=== PATIENT | female | born 1985 | race American Indian/Alaskan Native ===

== ENCOUNTER 2016-09-27 10:35 | Emergency (ER) | payer OTHER ==
[2016-09-27 12:06] LABS: Basophils % (Auto) 1.1 % (0.0-1.8); Eosinophils % (Auto) 1.8 % (0.0-4.3); Hematocrit 35.2 % (30.3-42.9); Hemoglobin 11.2 gm/dl (10.1-14.3); Mean Corpuscular HGB Conc 32 % (30-34); Mean Corpuscular Volume 74 fl (79-97); Platelet Count 213 K/mm3 (140-440); Red Blood Count 4.73 M/mm3 (3.65-5.03); Red Cell Distribution Width 13.7 % (13.2-15.2); White Blood Count 5.2 K/mm3 (4.5-11.0)
[2016-09-27 12:08] LABS: Mean Corpuscular Hemoglobin 24 pg (28-32)
[2016-09-27 12:34] LABS: Anion Gap 18 mmol/L; BUN/Creatinine Ratio 13.75; Blood Urea Nitrogen 11 mg/dL (7-17); Calcium 8.9 mg/dL (8.4-10.2); Carbon Dioxide 25 mmol/L (22-30); Chloride 105.2 mmol/L (98-107); Glucose 83 mg/dL (65-100); Potassium 4.3 mmol/L (3.6-5.0); Sodium 144 mmol/L (137-145)
[2016-09-27 20:34] VITALS: BP 117/59
--- NOTE | 2016-09-27 21:07 | Emergency Department Report ---
ED Chest Pain HPI - General Chief Complaint: Chest Pain Stated Complaint: CHEST PAIN/LT SIDE PAIN Time Seen by Provider: 09/27/16 19:47 Source: patient Mode of arrival: Ambulatory Limitations: No Limitations - History of Present Illness Initial Comments: 31-year-old female with a past medical history presents to the hospital complaining of left upper chest pain for last few months. Pain has been ongoing greater than 5 months. Pain is intermittent, aching in nature, worsened movement and palpation. No alleviating factors reported. Currently rated 5/10 in intensity. Pain worsened over the last 4 days. Patient c/o swelling to the upper portion of her chest. Denies cough, fever, calf tenderness, control pill use, recent travel, history of PE/DVT, or family history of CAD. Patient complains of dyspnea intermittently and also states that symptoms are worse with exercising cardio. Severity scale (0 -10): 8 - Related Data Previous Rx's Medication Instructions Recorded Last Taken Type Ibuprofen [Motrin] 600 mg PO Q8H PRN #30 tablet 09/27/16 Unknown Rx Allergies Allergy/AdvReac Type Severity Reaction Status Date / Time sulfamethoxazole Allergy Hives Verified 06/14/15 07:57 [From Bactrim] trimethoprim [From Bactrim] Allergy Hives Verified 06/14/15 07:57 SUPA score - Supa Score Age > 65: (0) No Aspirin use within the Past 7 Days: (0) No 3 or more CAD Risk Factors: (0) No 2 or more Angina events in past 24 hrs: (0) No Known CAD with more than 50% Stenosis: (0) No Elevated Cardiac Markers: (0) No ST Deviation Greater than 0.5mm: (0) No SUPA Score: 0 ED Review of Systems ROS: Stated complaint: CHEST PAIN/LT SIDE PAIN Other details as noted in HPI Comment: All other systems reviewed and negative Other: Constitutional: No fevers chills Eyes: No eye pain visual changes ENT: No ear pain or throat pain Neck: Denies pain Respiratory: Denies cough wheezing Cardiovascular: As per HPI GI: Denies abdominal pain, nausea, vomiting, diarrhea : Denies dysuria Musculoskeletal: Denies back pain Skin: Denies rash, lesions, erythema Neurologic: Denies headache, numbness, weakness Psychiatric: Denies suicidal ideation, hallucinations ED Past Medical Hx - Past Medical History Previous Medical History?: No - Surgical History Past Surgical History?: Yes Additional Surgical History: - Social History Smoking Status: Never Smoker Substance Use Type: Alcohol - Medications Home Medications: Home Medications Medication Instructions Recorded Confirmed Last Taken Type Ibuprofen [Motrin] 600 mg PO Q8H PRN #30 tablet 09/27/16 Unknown Rx ED Physical Exam - General Limitations: No Limitations - Other Other exam information: General: No limitations, patient is alert in no acute distress Head exam: Atraumatic, normocephalic Eyes exam: Normal appearance, pupils equal reactive to light, extraocular movements intact ENT: Moist mucous membrane, normal oropharynx Neck exam: Normal inspection, full range of motion, no meningismus nontender Respiratory exam: Clear to auscultation bilateral, no wheezes, rales, crackles, reproducible left upper rib tenderness to the anterior chest wall without any signs of swelling. Cardiovascular: Normal rate and rhythm, normal heart sounds Abdomen: Soft, nondistended, and nontender, with normal bowel sounds, no rebound, or guarding Extremity: Full range of motion normal inspection no deformity, no calf tenderness or edema Back: Normal Inspection, full range of motion, no tenderness Neurologic: Alert, oriented x3, cranial nerves intact, no motor or sensory deficit Psychiatric: normal affect, normal mood Skin: Warm, dry, intactm ED Course Vital Signs 09/27/16 09/27/16 10:58 20:34 Temperature 98.1 F Pulse Rate 51 L 52 L Respiratory 14 16 Rate Blood Pressure 112/67 Blood Pressure 117/59 [Left] O2 Sat by Pulse 100 95 Oximetry - Reevaluation(s) Reevaluation #1: 09/27/16 21:06 Patient declined offer for pain medication ED Medical Decision Making - Lab Data Result diagrams: 09/27/16 11:53 09/27/16 11:53 Lab Results 09/27/16 09/27/16 09/27/16 Range/Units 11:53 11:53 15:16 WBC 5.2 (4.5-11.0) K/mm3 RBC 4.73 (3.65-5.03) M/mm3 Hgb 11.2 (10.1-14.3) gm/dl Hct 35.2 (30.3-42.9) % MCV 74 L (79-97) fl MCH 24 L (28-32) pg MCHC 32 (30-34) % RDW 13.7 (13.2-15.2) % Plt Count 213 (140-440) K/mm3 Lymph % (Auto) 33.3 (13.4-35.0) % Hunt % (Auto) 8.3 H (0.0-7.3) % Eos % (Auto) 1.8 (0.0-4.3) % Baso % (Auto) 1.1 (0.0-1.8) % Lymph # 1.7 (1.2-5.4) K/mm3 Hunt # 0.4 (0.0-0.8) K/mm3 Eos # 0.1 (0.0-0.4) K/mm3 Baso # 0.1 (0.0-0.1) K/mm3 Seg Neutrophils % 55.5 (40.0-70.0) % Seg Neutrophils # 2.9 (1.8-7.7) K/mm3 D-Dimer (0-234) ng/mlDDU Sodium 144 (137-145) mmol/L Potassium 4.3 (3.6-5.0) mmol/L Chloride 105.2 (98-107) mmol/L Carbon Dioxide 25 (22-30) mmol/L Anion Gap 18 mmol/L BUN 11 (7-17) mg/dL Creatinine 0.8 (0.7-1.2) mg/dL Estimated GFR > 60 ml/min BUN/Creatinine Ratio 13.75 % Glucose 83 (65-100) mg/dL Calcium 8.9 (8.4-10.2) mg/dL Troponin T < 0.010 < 0.010 (0.00-0.029) ng/mL 09/27/16 Range/Units 20:16 WBC (4.5-11.0) K/mm3 RBC (3.65-5.03) M/mm3 Hgb (10.1-14.3) gm/dl Hct (30.3-42.9) % MCV (79-97) fl MCH (28-32) pg MCHC (30-34) % RDW (13.2-15.2) % Plt Count (140-440) K/mm3 Lymph % (Auto) (13.4-35.0) % Hunt % (Auto) (0.0-7.3) % Eos % (Auto) (0.0-4.3) % Baso % (Auto) (0.0-1.8) % Lymph # (1.2-5.4) K/mm3 Hunt # (0.0-0.8) K/mm3 Eos # (0.0-0.4) K/mm3 Baso # (0.0-0.1) K/mm3 Seg Neutrophils % (40.0-70.0) % Seg Neutrophils # (1.8-7.7) K/mm3 D-Dimer 235.26 H (0-234) ng/mlDDU Sodium (137-145) mmol/L Potassium (3.6-5.0) mmol/L Chloride (98-107) mmol/L Carbon Dioxide (22-30) mmol/L Anion Gap mmol/L BUN (7-17) mg/dL Creatinine (0.7-1.2) mg/dL Estimated GFR ml/min BUN/Creatinine Ratio % Glucose (65-100) mg/dL Calcium (8.4-10.2) mg/dL Troponin T (0.00-0.029) ng/mL - EKG Data -: EKG Interpreted by Me (sinus chelsy 54,) - EKG Data When compared to previous EKG there are: no significant change (compared to ) - Radiology Data Radiology results: image reviewed (chest x-ray: naf) - Medical Decision Making Patient is low risk for GA given the lack of risk factors, unremarkable EKG and cardiac enzymes. Patient has low risk for PE/DVT with a d-dimer less than 250. For further imaging not obtained. Patient was discharged home with anti- inflammatory for pain and encouraged follow-up with primary care doctor for further management. - Differential Diagnosis costochondritis, chest wall pain, PE, GA Critical Care Time: No Critical care attestation.: If time is entered above; I have spent that time in minutes in the direct care of this critically ill patient, excluding procedure time. ED Disposition Clinical Impression: Costochondritis Disposition: DISCHARGED TO HOME OR SELFCARE Is pt being admited?: No Does the pt Need Aspirin: No Condition: Stable Instructions: Costochondritis (ED) Additional Instructions: Take Motrin as needed for pain and follow-up with your primary care doctor. Return if symptoms worsen. Prescriptions: Ibuprofen [Motrin] 600 mg PO Q8H PRN #30 tablet PRN Reason: Pain Referrals: PRIMARY CARE, [Primary Care Provider] - 3-5 Days Time of Disposition: 21:09
--- NOTE | 2016-09-28 09:17 | XRay Report ---
Chest 2 views: History: Chest pain. Findings: Normal cardiomediastinal silhouette. Trachea is midline. No consolidation, pneumothorax or pleural effusion. Impression: No acute cardiopulmonary findings.
== END 2016-09-27 21:23 | disposition home or self-care (01) ==
LOC: ED 10:35
DX: M94.0 Chondrocostal junction syndrome [Tietze] (principal)
CPT/HCPCS: 36415; 71020; 80048; 84484; 85025; 85379; 93005; 93010

== ENCOUNTER 2017-02-01 15:38 | Emergency (ER) | payer OTHER ==
--- NOTE | 2017-02-01 18:31 | Emergency Department Report ---
<MURPHYMARICARMENALEX CRAVEN M - Last Filed: 02/01/17 19:06> ED General Adult HPI - General Chief complaint: Allergic Reaction Stated complaint: HIVES/BODY SORENESS/FATIGUE Time Seen by Provider: 02/01/17 18:08 Source: patient Mode of arrival: Ambulatory Limitations: No Limitations - History of Present Illness Initial comments: PT c/o fatigue x weeks. PT also c/o body aches, worse in the am. PT also states she has been breaking out in diffuse and random hives since Saturday. PT states she has broken out in hives before and they usually go away when she takes claritin or Benadryl, however these hives keep returning. PT states she is currently on her menstrual cycle and it is normal. MD Complaint: fatigue, rash -: Gradual, week(s) Severity scale (0 -10): 0 (pt denies pain) Consistency: intermittent Improves with: medication Associated Symptoms: malaise, rash. denies: chest pain, fever/chills, headaches , loss of appetite, nausea/vomiting - Related Data Previous Rx's Medication Instructions Recorded Last Taken Type Ibuprofen [Motrin] 600 mg PO Q8H PRN #30 tablet 09/27/16 Unknown Rx Metoclopramide [Reglan] 10 mg PO TID PRN #28 tab 02/01/17 Unknown Rx Prednisone [predniSONE 10 mg 10 mg PO .TAPER #1 tab.ds.pk 02/01/17 Unknown Rx (6-Day Pack, 21 Tabs)] diphenhydrAMINE [Benadryl CAP] 25 mg PO Q6HR PRN #30 capsule 02/01/17 Unknown Rx Allergies Allergy/AdvReac Type Severity Reaction Status Date / Time sulfamethoxazole Allergy Hives Verified 06/14/15 07:57 [From Bactrim] trimethoprim [From Bactrim] Allergy Hives Verified 06/14/15 07:57 ED Review of Systems ROS: Stated complaint: HIVES/BODY SORENESS/FATIGUE Other details as noted in HPI Comment: All other systems reviewed and negative Constitutional: denies: chills, fever ENT: denies: throat pain Respiratory: denies: shortness of breath Cardiovascular: denies: chest pain Endocrine: intolerance to cold, other Gastrointestinal: nausea (the other day ). denies: abdominal pain, vomiting Genitourinary: denies: dysuria, abnormal menses Skin: rash, change in color Neurological: denies: abnormal gait ED Past Medical Hx - Past Medical History Previous Medical History?: No - Surgical History Past Surgical History?: No Additional Surgical History: - Social History Smoking Status: Never Smoker Substance Use Type: None - Medications Home Medications: Home Medications Medication Instructions Recorded Confirmed Last Taken Type Ibuprofen [Motrin] 600 mg PO Q8H PRN #30 tablet 09/27/16 Unknown Rx Metoclopramide [Reglan] 10 mg PO TID PRN #28 tab 02/01/17 Unknown Rx Prednisone [predniSONE 10 mg 10 mg PO .TAPER #1 tab.ds.pk 02/01/17 Unknown Rx (6-Day Pack, 21 Tabs)] diphenhydrAMINE [Benadryl CAP] 25 mg PO Q6HR PRN #30 capsule 02/01/17 Unknown Rx ED Physical Exam - General Limitations: No Limitations General appearance: alert, in no apparent distress - Head Head exam: Present: atraumatic, normocephalic, normal inspection - Eye Eye exam: Present: normal appearance, PERRL, EOMI, other (pale conjunctiva). Absent: conjunctival injection - ENT ENT exam: Present: normal exam, mucous membranes moist, TM's normal bilaterally , normal external ear exam - Neck Neck exam: Present: normal inspection, full ROM. Absent: lymphadenopathy - Respiratory Respiratory exam: Present: normal lung sounds bilaterally. Absent: respiratory distress, chest wall tenderness - Cardiovascular Cardiovascular Exam: Present: normal rhythm, bradycardia - GI/Abdominal GI/Abdominal exam: Present: soft, normal bowel sounds. Absent: tenderness - Extremities Exam Extremities exam: Present: normal inspection, full ROM - Back Exam Back exam: Present: normal inspection, full ROM. Absent: tenderness, CVA tenderness (R), CVA tenderness (L), muscle spasm, paraspinal tenderness, vertebral tenderness - Neurological Exam Neurological exam: Present: alert, oriented X3 - Psychiatric Psychiatric exam: Present: normal affect, normal mood - Skin Skin exam: Present: warm, dry, intact, normal color ED Course Vital Signs 02/01/17 02/01/17 15:58 18:46 Temperature 98.6 F 98.3 F Pulse Rate 49 L 52 L Respiratory 16 17 Rate Blood Pressure 115/76 Blood Pressure 119/77 [Left] O2 Sat by Pulse 95 100 Oximetry - Reevaluation(s) Reevaluation #1: 02/01/17 18:37 PT aware of plan of care. PT has no questions at this time. Reevaluation #2: 02/01/17 19:06 PT aware that labs are pending. VANESSA Cardenas to follow. - Pulse Oximetry Interpretation Digit-Finger Initial Pulse Oximetry Readin Actions Taken: none ED Medical Decision Making - Differential Diagnosis , anemia, rhado, rash, urticaria Critical Care Time: No Critical care attestation.: If time is entered above; I have spent that time in minutes in the direct care of this critically ill patient, excluding procedure time. ED Disposition Clinical Impression: Allergic dermatitis Allergic reaction Qualifiers: Encounter type: initial encounter Qualified Code(s): T78.40XA - Allergy, unspecified, initial encounter Disposition: TO HOME OR SELFCARE Condition: Good Instructions: Allergies (ED) Prescriptions: diphenhydrAMINE [Benadryl CAP] 25 mg PO Q6HR PRN #30 capsule PRN Reason: allergies Metoclopramide [Reglan] 10 mg PO TID PRN #28 tab PRN Reason: allergies Prednisone [predniSONE 10 mg (6-Day Pack, 21 Tabs)] 10 mg PO .TAPER #1 tab.ds.pk Referrals: SAMANTHA MTZ MD [Staff Physician] - 3-5 Days Forms: Work/School Release Form(ED) <LATRICE DOWNEY - Last Filed: 02/01/17 20:10> ED Medical Decision Making - Lab Data Result diagrams: 02/01/17 18:54 02/01/17 18:54 Laboratory Tests 02/01/17 02/01/17 02/01/17 18:54 18:54 18:54 WBC 6.1 RBC 4.73 Hgb 11.2 Hct 35.9 MCV 76 L MCH 24 L MCHC 31 RDW 13.7 Plt Count 225 Lymph % (Auto) 41.9 H Roberts % (Auto) 7.1 Eos % (Auto) 2.8 Baso % (Auto) 0.5 Lymph # 2.6 Roberts # 0.4 Eos # 0.2 Baso # 0.0 Seg Neutrophils % 47.7 Seg Neutrophils # 2.9 Sodium 140 Potassium 3.9 Chloride 102.1 Carbon Dioxide 26 Anion Gap 16 BUN 8 Creatinine 0.8 Estimated GFR > 60 BUN/Creatinine Ratio 10.00 Glucose 87 Calcium 8.9 Total Bilirubin 0.40 AST 51 H ALT 19 Alkaline Phosphatase 39 Total Creatine Kinase Total Protein 7.2 Albumin 4.2 Albumin/Globulin Ratio 1.4 TSH HCG, Qual Negative 02/01/17 02/01/17 18:54 18:54 WBC RBC Hgb Hct MCV MCH MCHC RDW Plt Count Lymph % (Auto) Roberts % (Auto) Eos % (Auto) Baso % (Auto) Lymph # Roberts # Eos # Baso # Seg Neutrophils % Seg Neutrophils # Sodium Potassium Chloride Carbon Dioxide Anion Gap BUN Creatinine Estimated GFR BUN/Creatinine Ratio Glucose Calcium Total Bilirubin AST ALT Alkaline Phosphatase Total Creatine Kinase 1199 H Total Protein Albumin Albumin/Globulin Ratio TSH 1.680 HCG, Qual - Medical Decision Making pt is a 31 y/o aaf with hx of frequent allergic reactions described as hives, itching usually relieved by benadryl and claratin presents for same today pt endorse 6 pack yr smoke, occassional ETOH, no substance, pt denies symptoms at this time, had hives right forearm, neck and chest yesterday, non noted on exam , pt rec'd a/o x3 nad lungs clear bilat all lobes no wheezing no stridor no resp distress, no SALMON cv: S1 and S2 no MRG, no abdominal pain no tenderness, skin : warm dry intact no rash no hives no erythema no lesions , plan: steroid taper, reglan , benadryl, labs noted , hcg: negative pt will follow up with pcp on saturday Dr. Centeno pt verbalized understanding and agreement with discharge plan. pt v/s at this time: hr: 69, resp: 16, O2 sat: 99% r/a ED Disposition Is pt being admited?: No Does the pt Need Aspirin: No Time of Disposition: 20:10
[2017-02-01 19:08] LABS: Basophils % (Auto) 0.5 % (0.0-1.8); Eosinophils % (Auto) 2.8 % (0.0-4.3); Hematocrit 35.9 % (30.3-42.9); Hemoglobin 11.2 gm/dl (10.1-14.3); Mean Corpuscular HGB Conc 31 % (30-34); Mean Corpuscular Volume 76 fl (79-97); Platelet Count 225 K/mm3 (140-440); Red Blood Count 4.73 M/mm3 (3.65-5.03); Red Cell Distribution Width 13.7 % (13.2-15.2); White Blood Count 6.1 K/mm3 (4.5-11.0)
[2017-02-01 19:10] LABS: Mean Corpuscular Hemoglobin 24 pg (28-32)
[2017-02-01 19:29] LABS: Alanine Aminotransferase 19 units/L (7-56); Albumin 4.2 g/dL (3.9-5); Albumin/Globulin Ratio 1.4 %; Alkaline Phosphatase 39 units/L (35-129); Anion Gap 16 mmol/L; Blood Urea Nitrogen 8 mg/dL (7-17); Calcium 8.9 mg/dL (8.4-10.2); Carbon Dioxide 26 mmol/L (22-30); Chloride 102.1 mmol/L (98-107); Glucose 87 mg/dL (65-100); Potassium 3.9 mmol/L (3.6-5.0); Sodium 140 mmol/L (137-145); Total Protein 7.2 g/dL (6.3-8.2)
[2017-02-02 02:44] VITALS: BP 104/67
== END 2017-02-01 20:20 | disposition home or self-care (01) ==
LOC: ED 15:38
DX: L23.9 Allergic contact dermatitis, unspecified cause (principal); Z88.1 Allergy status to other antibiotic agents; Z88.2 Allergy status to sulfonamides
CPT/HCPCS: 36415; 80053; 82550; 84443; 84703; 85025; 99283

== ENCOUNTER 2019-11-08 09:11 | Emergency (ER) | payer MEDICAID ==
[2019-11-08] MEDS ORDERED: SODIUM CHLORIDE 0.9% 1000 ML 1,000 ML IV ONE (10:17)
[2019-11-08 10:46] LABS: Hematocrit 34.7 % (30.3-42.9); Hemoglobin 11.1 gm/dl (10.1-14.3); Mean Corpuscular HGB Conc 32 % (30-34); Mean Corpuscular Volume 78 fl (79-97); Platelet Count 231 K/mm3 (140-440); Red Blood Count 4.43 M/mm3 (3.65-5.03); Red Cell Distribution Width 13.9 % (13.2-15.2)
[2019-11-08 10:57] LABS: Bilirubin,Urine NEG (Negative); Blood,Urine SM (Negative); Color,Urine Yellow (Yellow); Urobilinogen,Urine < 2.0 mg/dL (<2.0)
[2019-11-08 11:00] LABS: HCG Qualitative,Urine Negative (Negative)
[2019-11-08 11:00] LABS: BUN/Creatinine Ratio 14; Blood Urea Nitrogen 11 mg/dL (7-17); Calcium 9.3 mg/dL (8.4-10.2); Hemolysis Index 178
--- NOTE | 2019-11-08 11:23 | Emergency Department Report ---
ED Female HPI - General Chief complaint: Urogenital-Female Stated complaint: KIDNEY INFECTION Time Seen by Provider: 11/08/19 10:00 Source: patient Mode of arrival: Ambulatory Limitations: No Limitations - History of Present Illness Initial comments: 34-year-old female she reports a history of UTI diagnosed by her primary care doctor on Saturday. She is taking Macrodantin 100 mg twice daily. Patient reports increasing flank pain. T-max of 101 fatigue and loss of appetite. Denies nausea and vomiting MD Complaint: dysuria -: week(s) (1) Consistency: constant Are you Now?: No Associated Symptoms: fever/chills, dysuria. denies: vaginal discharge, vaginal bleeding, abdominal pain - Related Data Previous Rx's Medication Instructions Recorded Last Taken Type Ibuprofen [Motrin] 600 mg PO Q8H PRN #30 tablet 09/27/16 Unknown Rx Metoclopramide [Reglan] 10 mg PO TID PRN #28 tab 02/01/17 Unknown Rx Prednisone [predniSONE 10 mg 10 mg PO .TAPER #1 tab.ds.pk 02/01/17 Unknown Rx (6-Day Pack, 21 Tabs)] diphenhydrAMINE [Benadryl CAP] 25 mg PO Q6HR PRN #30 capsule 02/01/17 Unknown Rx Fluconazole [Diflucan TAB] 150 mg PO ONCE #1 tablet 11/08/19 Unknown Rx levoFLOXacin [Levaquin] 750 mg PO QDAY 5 Days #5 tablet 11/08/19 Unknown Rx Allergies Allergy/AdvReac Type Severity Reaction Status Date / Time sulfamethoxazole Allergy Hives Verified 06/14/15 07:57 [From Bactrim] trimethoprim [From Bactrim] Allergy Hives Verified 06/14/15 07:57 ED Review of Systems ROS: Stated complaint: KIDNEY INFECTION Other details as noted in HPI Comment: All other systems reviewed and negative Constitutional: chills, fever, malaise ENT: denies: ear pain, throat pain Respiratory: denies: cough, orthopnea Cardiovascular: denies: chest pain Genitourinary: dysuria, frequency. denies: hematuria, discharge Skin: denies: change in color ED Past Medical Hx - Past Medical History Previous Medical History?: No - Surgical History Past Surgical History?: Yes Additional Surgical History: - Social History Smoking Status: Never Smoker Substance Use Type: None - Medications Home Medications: Home Medications Medication Instructions Recorded Confirmed Last Taken Type Ibuprofen [Motrin] 600 mg PO Q8H PRN #30 tablet 09/27/16 Unknown Rx Metoclopramide [Reglan] 10 mg PO TID PRN #28 tab 02/01/17 Unknown Rx Prednisone [predniSONE 10 mg 10 mg PO .TAPER #1 tab.ds.pk 02/01/17 Unknown Rx (6-Day Pack, 21 Tabs)] diphenhydrAMINE [Benadryl CAP] 25 mg PO Q6HR PRN #30 capsule 02/01/17 Unknown Rx Fluconazole [Diflucan TAB] 150 mg PO ONCE #1 tablet 11/08/19 Unknown Rx levoFLOXacin [Levaquin] 750 mg PO QDAY 5 Days #5 tablet 11/08/19 Unknown Rx ED Physical Exam - General Limitations: No Limitations General appearance: alert, in no apparent distress - Head Head exam: Present: atraumatic - Neck Neck exam: Present: normal inspection - Respiratory Respiratory exam: Present: normal lung sounds bilaterally. Absent: respiratory distress, wheezes, rales - Cardiovascular Cardiovascular Exam: Present: regular rate, normal heart sounds - GI/Abdominal GI/Abdominal exam: Present: soft. Absent: distended - Rectal Rectal exam: Present: deferred - Extremities Exam Extremities exam: Present: normal inspection - Back Exam Back exam: Present: CVA tenderness (R) - Neurological Exam Neurological exam: Present: alert - Psychiatric Psychiatric exam: Present: normal affect - Skin Skin exam: Present: warm, dry, intact, normal color ED Course Vital Signs 11/08/19 09:16 Temperature 98.9 F Pulse Rate 86 Respiratory 20 Rate Blood Pressure 112/67 O2 Sat by Pulse 99 Oximetry ED Medical Decision Making - Lab Data Result diagrams: 11/08/19 Unknown 11/08/19 Unknown - Medical Decision Making 34-year-old female with history of UTIs started on oral antibiotics Macrodantin as prescribed by her PCP on Saturday. Her symptoms have gotten progressively worse. With a T-max of 101 increasing flank pain and dysuria. Patient's afebrile during his hospital visit labs were done CBC BMP and they are found to be within normal limits . Due to the progression of urinary symptoms this could possibly be at the start of pyelonephritis will change antibiotic to Levaquin 750 mg daily x5 days. Critical Care Time: No Critical care attestation.: If time is entered above; I have spent that time in minutes in the direct care of this critically ill patient, excluding procedure time. ED Disposition Clinical Impression: UTI (urinary tract infection) Qualifiers: Urinary tract infection type: acute pyelonephritis Qualified Code(s): N10 - Acute pyelonephritis Disposition: TO HOME OR SELFCARE Is pt being admited?: No Does the pt Need Aspirin: No Condition: Stable Instructions: Urinary Tract Infection in Women (ED) Additional Instructions: Increase oral hydration to at least 8 glasses of water daily follow-up with your primary care doctor in 3 to 5 days or sooner for any worsening symptoms stop taking Macrodantin and start new antibiotic prescribed to you today Prescriptions: Fluconazole [Diflucan TAB] 150 mg PO ONCE #1 tablet levoFLOXacin [Levaquin] 750 mg PO QDAY 5 Days #5 tablet Referrals: PRIMARY CARE, [Primary Care Provider] - 3-5 Days Time of Disposition: 11:25
[2019-11-08 12:29] VITALS: BP 110/70
== END 2019-11-08 12:28 | disposition home or self-care (01) ==
LOC: ED 09:11
DX: N39.0 Urinary tract infection, site not specified (principal); Z79.899 Other long term (current) drug therapy; Z98.890 Other specified postprocedural states; Z88.2 Allergy status to sulfonamides; Z88.8 Allergy status to other drugs, medicaments and biological substances
CPT/HCPCS: 36415; 80048; 81001; 81025; 85027; 87086; 99283; J7030

== ENCOUNTER 2020-10-28 09:31 | Emergency (ER) | payer MEDICAID ==
[2020-10-28] MEDS ORDERED: SODIUM CHLORIDE 0.9% 1000 ML 1,000 ML IV ONE (10:08)
[2020-10-28] MEDS ORDERED: KETOROLAC 30 MG/1 ML INJ IV ONE (10:08)
--- NOTE | 2020-10-28 10:10 | Emergency Department Report ---
ED Abdominal Pain HPI - General Chief Complaint: GI Bleed Stated Complaint: LT SIDE PAIN/ABD PAIN/BLOOD IN STOOL Time Seen by Provider: 10/28/20 09:58 Source: patient Mode of arrival: Ambulatory Limitations: No Limitations - History of Present Illness Initial Comments: 35-year-old female with no significant past medical history presents to the ER today with complaints of abdominal pain and rectal bleeding. Patient states that she has been having constant pain to her left flank and left lower quadrant abdominal area for the past 3 weeks. She reports associated abdominal bloating. She states that she thought her symptoms were related to being constipated has a stool output has decreased and therefore for the past 2 weeks she has been taking 4-6 stool softeners. She states that she does have soft bowel movements but she still feels like she is not producing enough stool. She denies any straining with bowel movements. She states that last night she noticed blood in her stool and it was dark red. She reports nausea this morning but this has since resolved. She denies any vomiting. She is not on any blood thinners. She denies similar symptoms in the past. She denies any UTI or vaginal symptoms. Her last menstrual cycle was October 19, 2020. MD Complaint: abdominal pain, flank pain, other (rectal bleeding) - Related Data Previous Rx's Medication Instructions Recorded Last Taken Type Acetaminophen/Codeine [Tylenol 1 tab PO Q6H PRN #12 tab 10/28/20 Unknown Rx /Codeine # 3 tab] Ciprofloxacin HCl 500 mg PO BID #14 tablet 10/28/20 Unknown Rx Fluconazole [Diflucan TAB] 150 mg PO QDAY #1 tablet 10/28/20 Unknown Rx metroNIDAZOLE [Flagyl] 500 mg PO Q12HR #14 tab 10/28/20 Unknown Rx Allergies Allergy/AdvReac Type Severity Reaction Status Date / Time sulfamethoxazole Allergy Hives Verified 06/14/15 07:57 [From Bactrim] trimethoprim [From Bactrim] Allergy Hives Verified 06/14/15 07:57 ED Review of Systems ROS: Stated complaint: LT SIDE PAIN/ABD PAIN/BLOOD IN STOOL Other details as noted in HPI Comment: All other systems reviewed and negative Constitutional: denies: chills, fever Eyes: denies: eye pain, eye discharge, vision change ENT: denies: ear pain, throat pain Respiratory: denies: cough, shortness of breath, wheezing Cardiovascular: denies: chest pain, palpitations Gastrointestinal: abdominal pain, nausea, constipation, hematochezia Genitourinary: denies: urgency, dysuria, discharge Musculoskeletal: back pain. denies: joint swelling, arthralgia Skin: denies: rash, lesions Psychiatric: denies: anxiety, depression Hematological/Lymphatic: denies: easy bleeding, easy bruising ED Past Medical Hx - Past Medical History Previous Medical History?: No - Surgical History Past Surgical History?: Yes Additional Surgical History: - Social History Smoking Status: Never Smoker Substance Use Type: Alcohol - Medications Home Medications: Home Medications Medication Instructions Recorded Confirmed Last Taken Type Acetaminophen/Codeine [Tylenol 1 tab PO Q6H PRN #12 tab 10/28/20 Unknown Rx /Codeine # 3 tab] Ciprofloxacin HCl 500 mg PO BID #14 tablet 10/28/20 Unknown Rx Fluconazole [Diflucan TAB] 150 mg PO QDAY #1 tablet 10/28/20 Unknown Rx metroNIDAZOLE [Flagyl] 500 mg PO Q12HR #14 tab 10/28/20 Unknown Rx ED Physical Exam - General Limitations: No Limitations General appearance: alert, in no apparent distress - Head Head exam: Present: atraumatic, normocephalic, normal inspection - Respiratory Respiratory exam: Present: normal lung sounds bilaterally. Absent: respiratory distress - Cardiovascular Cardiovascular Exam: Present: regular rate, normal rhythm, normal heart sounds - GI/Abdominal GI/Abdominal exam: Present: soft, tenderness (Left lower quadrant/suprapubic). Absent: distended, guarding, rebound - Rectal Rectal exam: Present: normal inspection, normal rectal tone, heme (-) stool, other (Small amount of stool noted. No gross blood). Absent: hemorrhoids, tenderness - Extremities Exam Extremities exam: Present: normal inspection - Back Exam Back exam: Present: CVA tenderness (L) - Neurological Exam Neurological exam: Present: alert, oriented X3, CN II-XII intact - Psychiatric Psychiatric exam: Present: normal affect, normal mood - Skin Skin exam: Present: intact ED Course Vital Signs 10/28/20 10/28/20 10/28/20 09:42 11:26 11:43 Temperature 98.8 F Pulse Rate 63 53 L Respiratory 15 18 16 Rate Blood Pressure 114/55 Blood Pressure 102/58 [Left] O2 Sat by Pulse 100 99 Oximetry ED Medical Decision Making - Lab Data Result diagrams: 10/28/20 10:18 10/28/20 10:18 - Radiology Data Radiology results: report reviewed Patient: АННА WEST MR#: [id number] : 04/03/1969 Acct:[id number] Age/Sex: 51 / M ADM Date: 10/28/20 Loc: ED Attending Dr: Ordering Physician: KANDACE CALLAHAN Date of Service: 10/28/20 Procedure(s): CT abdomen pelvis wo con Accession Number(s): [id number] cc: KANDACE CALLAHAN CT ABDOMEN AND PELVIS WITHOUT CONTRAST INDICATION / CLINICAL INFORMATION: hematuria l flank pain. TECHNIQUE: Axial CT images were obtained through the abdomen and pelvis without IV contrast. All CT scans at this location are performed using CT dose reduction for ALARA by means of automated exposure control. COMPARISON: None available. FINDINGS: LOWER CHEST: There is mild linear scar or atelectasis in the lung bases. LIVER: No significant abnormality. GALLBLADDER: No significant abnormality. BILE DUCTS: No significant abnormality. PANCREAS: No significant abnormality. SPLEEN: No significant abnormality. ADRENALS: No significant abnormality. RIGHT KIDNEY and URETER: No significant abnormality. LEFT KIDNEY and URETER: There is a double-J ureteral stent. There is mild edema noted around the renal pelvis ureter. The stent appears in satisfactory position. There is mild dilatation of the left renal collecting system. STOMACH and SMALL BOWEL: No significant abnormality. COLON: There is a questionable apple core lesion in the proximal sigmoid colon, series 2 image 124. This is suspicious but not definitive could represent some focal muscular contraction within the bowel. APPENDIX: No significant abnormality. PERITONEUM: No free fluid. No free air. No fluid collection. LYMPH NODES: No significant adenopathy. AORTA and ARTERIES: Mild atherosclerotic calcification without acute abnormality. IVC and VEINS: No significant abnormality. URINARY BLADDER: No acute abnormality. Double-J stent is noted. REPRODUCTIVE ORGANS: No significant abnormality. ADDITIONAL FINDINGS: None. SKELETAL SYSTEM: No acute abnormality IMPRESSION: 1. There is possible palpable core lesion in the proximal sigmoid colon. Colonoscopy is recommended to further evaluate. 2. There is a double-J ureteral stent on the left. There is some edema noted around the renal pelvis and left ureter. There is mild dilatation of the left renal collecting system. Signer Name: Tien Cobos MD Signed: 10/28/2020 12:05 PM Workstation Name: [id number] Transcribed By: SS Dictated By: Tien Cobos MD Electronically Authenticated By: Tien Cobos MD Signed Date/Time: 10/28/20 1205 - Medical Decision Making 1243: Labs reviewed and unremarkable. CT abdomen pelvis shows possible colitis, otherwise nothing acute. Patient currently resting comfortably, she is not in any acute distress, and her vital signs have been stable during stay. She is well-appearing, nontoxic and appears well-hydrated. She reports improvement of her abdominal pain with meds. No indication for any further work-up, admission or emergent consult at this time. Discussed labs and CT results and diagnosis with patient. Discussed treatment plan with patient. Expressed the importance of following up with her PCP and or elevator repair mechanic next week. She states she has an appoint with GI on which I recommend she keeps. She understands to return to the ER if her symptoms worsens in any way. Patient was stable at time of discharge Critical care attestation.: If time is entered above; I have spent that time in minutes in the direct care of this critically ill patient, excluding procedure time. ED Disposition Clinical Impression: Colitis Disposition: DC-01 TO HOME OR SELFCARE Is pt being admited?: No Does the pt Need Aspirin: No Condition: Stable Instructions: Colitis Additional Instructions: Take the Tylenol 3's, Cipro and Flagyl as prescribed. Drink lots of water. Follow-up closely with your primary care doctor and or the elevator repair mechanic. Return to the ER if your symptoms changes or worsens in any way. Prescriptions: Ciprofloxacin HCl 500 mg PO BID #14 tablet Fluconazole [Diflucan TAB] 150 mg PO QDAY #1 tablet metroNIDAZOLE [Flagyl] 500 mg PO Q12HR #14 tab Acetaminophen/Codeine [Tylenol /Codeine # 3 tab] 1 tab PO Q6H PRN #12 tab PRN Reason: pain Referrals: LIONEL HAMPTON MD [Primary Care Provider] - 3-5 Days [facility] [Provider Group] - 3-5 Days Forms: Accompanied Note, Work/School Release Form(ED) Time of Disposition: 12:39
[2020-10-28 10:50] LABS: Bacteria,Urine 4+ /HPF (Negative); Bilirubin,Urine NEG (Negative); Blood,Urine NEG (Negative); Color,Urine Straw (Yellow); Protein,Urine <15 mg/dL mg/dL (Negative); Urobilinogen,Urine < 2.0 mg/dL (<2.0)
[2020-10-28 11:15] LABS: Basophils # (Auto) 0.1 K/mm3 (0.0-0.1); Basophils % (Auto) 1.1 % (0.0-1.8); Eosinophils # (Auto) 0.2 K/mm3 (0.0-0.4); Eosinophils % (Auto) 3.8 % (0.0-4.3); Hematocrit 33.1 % (30.3-42.9); Hemoglobin 10.7 gm/dl (10.1-14.3); Lymphocytes # (Auto) 2.3 K/mm3 (1.2-5.4); Mean Corpuscular HGB Conc 32 % (30-34); Mean Corpuscular Volume 78 fl (79-97); Monocytes # (Auto) 0.4 K/mm3 (0.0-0.8); Monocytes % (Auto) 8.9 % (0.0-7.3); Platelet Count 212 K/mm3 (140-440); Red Blood Count 4.26 M/mm3 (3.65-5.03); Red Cell Distribution Width 13.4 % (13.2-15.2)
[2020-10-28 11:26] LABS: Alanine Aminotransferase 15 units/L (7-56); Albumin 3.9 g/dL (3.9-5); BUN/Creatinine Ratio 14; Blood Urea Nitrogen 13 mg/dL (7-17); Calcium 8.6 mg/dL (8.4-10.2); Hemolysis Index 28
[2020-10-28 11:44] VITALS: BP 102/58
--- NOTE | 2020-10-28 12:33 | Cat Scan Report ---
CT ABDOMEN AND PELVIS WITH CONTRAST INDICATION / CLINICAL INFORMATION: Left-sided abdominal pain, rectal bleeding for 3 days. TECHNIQUE: Axial CT images were obtained through the abdomen and pelvis after 100 cc of Omnipaque [address] scans at this location are performed using CT dose reduction for ALARA by means of automat ed exposure control. COMPARISON: None available. FINDINGS: LOWER CHEST: No significant abnormality. LIVER: No significant abnormality. GALLBLADDER: Cholelithiasis BILE DUCTS: No significant abnormality. PANCREAS: No significant abnormality. SPLEEN: No significant abnormality. ADRENALS: No significant abnormality. RIGHT KIDNEY and URETER: No significant abnormality. LEFT KIDNEY and URETER: No significant abnormality. STOMACH and SMALL BOWEL: No significant abnormality. COLON: The left colon and sigmoid colon are collapsed. The wall appears mildly thickened. This is not specific with the collapsed state of the bowel. This could represent colitis but is not definitive. APPENDIX: No significant abnormality. PERITONEUM: No free fluid. No free air. No fluid collection. LYMPH NODES: No significant adenopathy. AORTA and ARTERIES: No significant abnormality. IVC and VEINS: No significant abnormality. URINARY BLADDER: No significant abnormality. REPRODUCTIVE ORGANS: No significant abnormality. ADDITIONAL FINDINGS: None. SKELETAL SYSTEM: No acute abnormality. IMPRESSION: 1. Possible mild wall thickening in the left and sigmoid colon raising the possibility of colitis. Th is is not definitive. 2. Cholelithiasis Signer Name: Tien Cobos MD Signed: 10/28/2020 12:28 PM Workstation Name: [id number]
== END 2020-10-28 12:58 | disposition home or self-care (01) ==
LOC: ED 09:31
DX: K52.9 Noninfective gastroenteritis and colitis, unspecified (principal); Z98.890 Other specified postprocedural states; Z79.2 Long term (current) use of antibiotics; Z79.899 Other long term (current) drug therapy; Z88.8 Allergy status to other drugs, medicaments and biological substances
CPT/HCPCS: 36415; 74177; 80053; 81001; 82271; 83690; 84703; 85025; 96361; 96374; 99284; J1885; J7030; Q9967

== ENCOUNTER 2022-04-26 18:39 | Emergency (ER) | payer OTHER, MEDICAID ==
--- NOTE | 2022-04-27 01:06 | Emergency Department Report ---
ED ENT HPI - General Chief complaint: Sore Throat Stated complaint: SWOLLEN TONSIL/SORE THROAT Time Seen by Provider: 04/27/22 00:58 Source: patient Mode of arrival: Ambulatory Limitations: No Limitations - History of Present Illness Initial comments: Patient is a 36-year-old female who presents with a sore throat for 4 days. She was seen by her primary care physician 2 days ago and rapid strep screen in the office was negative. However, she has continued to have increasing sore throat and odynophagia. No rhinorrhea or cough. She has had a subjective fever and fatigue. She did not take her temperature however. She denies known ill contacts. She has a temperature for us of 100.5. MD complaint: sore throat Worsens with: swallowing, eating Associated Symptoms: fever. denies: cough, gum swelling, toothache, tinnitus, hearing loss, discharge from ear, rhinorrhea - Related Data Previous Rx's Medication Instructions Recorded Last Taken Type Amoxicillin [Trimox CAP] 500 mg PO QID #40 capsule 04/27/22 Unknown Rx Fluconazole [Diflucan TAB] 150 mg PO QDAY #1 tablet 04/27/22 Unknown Rx Ibuprofen [Motrin 600 MG tab] 600 mg PO Q8H PRN #20 tablet 04/27/22 Unknown Rx Allergies Allergy/AdvReac Type Severity Reaction Status Date / Time sulfamethoxazole Allergy Hives Verified 06/14/15 07:57 [From Bactrim] trimethoprim [From Bactrim] Allergy Hives Verified 06/14/15 07:57 ED Dental HPI - General Chief complaint: Sore Throat Stated complaint: SWOLLEN TONSIL/SORE THROAT Time Seen by Provider: 04/27/22 00:58 Source: patient Mode of arrival: Ambulatory Limitations: No Limitations - Related Data Previous Rx's Medication Instructions Recorded Last Taken Type Amoxicillin [Trimox CAP] 500 mg PO QID #40 capsule 04/27/22 Unknown Rx Fluconazole [Diflucan TAB] 150 mg PO QDAY #1 tablet 04/27/22 Unknown Rx Ibuprofen [Motrin 600 MG tab] 600 mg PO Q8H PRN #20 tablet 04/27/22 Unknown Rx Allergies Allergy/AdvReac Type Severity Reaction Status Date / Time sulfamethoxazole Allergy Hives Verified 06/14/15 07:57 [From Bactrim] trimethoprim [From Bactrim] Allergy Hives Verified 06/14/15 07:57 ED Review of Systems ROS: Stated complaint: SWOLLEN TONSIL/SORE THROAT Other details as noted in HPI Comment: All other systems reviewed and negative Constitutional: fever, malaise. denies: chills Eyes: denies: vision change ENT: denies: ear pain, dental pain, epistaxis Respiratory: denies: cough, orthopnea, shortness of breath Cardiovascular: denies: chest pain, palpitations, dyspnea on exertion Endocrine: denies: intolerance to cold, intolerance to heat Gastrointestinal: denies: abdominal pain, nausea, vomiting, diarrhea Genitourinary: denies: urgency, dysuria, frequency Musculoskeletal: denies: joint swelling, myalgia Skin: denies: rash Neurological: denies: headache, weakness, numbness, paresthesias Psychiatric: denies: anxiety, depression Hematological/Lymphatic: denies: easy bleeding, easy bruising ED Past Medical Hx - Past Medical History Previous Medical History?: No - Surgical History Past Surgical History?: Yes Hx Cholecystectomy: Yes (2020) Additional Surgical History: - Family History Family history: no significant - Social History Smoking Status: Unknown if ever smoked - Medications Home Medications: Home Medications Medication Instructions Recorded Confirmed Last Taken Type Amoxicillin [Trimox CAP] 500 mg PO QID #40 capsule 04/27/22 Unknown Rx Fluconazole [Diflucan TAB] 150 mg PO QDAY #1 tablet 04/27/22 Unknown Rx Ibuprofen [Motrin 600 MG tab] 600 mg PO Q8H PRN #20 tablet 04/27/22 Unknown Rx ED Physical Exam - General Limitations: No Limitations General appearance: alert, in no apparent distress - Head Head exam: Present: atraumatic, normocephalic - Eye Eye exam: Present: normal appearance. Absent: conjunctival injection, nystagmus - ENT ENT exam: Present: mucous membranes moist, other (Pharynx is with moderate erythema and bilateral tonsillar exudate. Uvula is midline and symmetrical without edema.) - Neck Neck exam: Present: normal inspection, full ROM, lymphadenopathy. Absent: tenderness, meningismus - Respiratory Respiratory exam: Present: normal lung sounds bilaterally. Absent: respiratory distress, wheezes, rales - Cardiovascular Cardiovascular Exam: Present: regular rate, normal rhythm, normal heart sounds - GI/Abdominal GI/Abdominal exam: Present: soft. Absent: distended, tenderness - Neurological Exam Neurological exam: Present: alert, oriented X3, CN II-XII intact - Psychiatric Psychiatric exam: Present: normal affect, normal mood - Skin Skin exam: Present: warm, dry, intact ED Course Vital Signs 04/26/22 04/27/22 20:12 02:15 Temperature 100.5 F H Pulse Rate 83 80 Respiratory 20 12 Rate Blood Pressure 115/59 Blood Pressure 123/67 [Left] O2 Sat by Pulse 100 100 Oximetry ED Medical Decision Making - Medical Decision Making Febrile patient with exudative pharyngitis, lymphadenopathy and absence of rhinorrhea or cough. Normal strep screen earlier this week but will go ahead and treat. - Differential Diagnosis Pharyngitis. Strep. Critical care attestation.: If time is entered above; I have spent that time in minutes in the direct care of this critically ill patient, excluding procedure time. ED Disposition Clinical Impression: Pharyngitis Disposition: HOME / SELF CARE / HOMELESS Is pt being admited?: No Condition: Stable Instructions: Pharyngitis Additional Instructions: Likely strep. Antibiotics. Ibuprofen. Warm salt water gargles. Push fluids and rest. See work note. Prescriptions: Fluconazole [Diflucan TAB] 150 mg PO QDAY #1 tablet Ibuprofen [Motrin 600 MG tab] 600 mg PO Q8H PRN #20 tablet PRN Reason: Pain Amoxicillin [Trimox CAP] 500 mg PO QID #40 capsule Referrals: PRIMARY CARE, [Primary Care Provider] - 3-5 Days Forms: Work/School Release Form(ED) Time of Disposition: 01:29
[2022-04-27] MEDS ORDERED: IBUPROFEN 600 MG TAB PO ONE (01:17)
[2022-04-27 02:15] VITALS: BP 123/67
== END 2022-04-27 02:16 | disposition home or self-care (01) ==
LOC: ED 18:39
DX: J02.9 Acute pharyngitis, unspecified (principal); Z90.49 Acquired absence of other specified parts of digestive tract
CPT/HCPCS: 99282